=== PATIENT | female | born 1950 | race Caucasian/White ===

== ENCOUNTER 2019-08-07 11:30 | Inpatient (IN) | payer MEDICARE ==
[2019-08-03 14:20] VITALS: BMI 21.3
[2019-08-07] VITALS (25 sets, daily range): BP systolic 110–158; BP diastolic 45–78; PULSE 73–107; RESP 16–36; Ht 160 cm; Wt 54.7 kg
[~2019-08-07] VITALS: Ht 160 cm; Wt 54.7 kg
[~2019-08-07 11:30] MED LIST: CEFAZOLIN 2 GM/50 ML (PMX) 50 ML IVPB SCH; LEVO125T71 PO; SERT-165 PO
[2019-08-07] MEDS: LACTATED RINGER'S 1,000 ML IV SCH (13:19)
[2019-08-07] MEDS ORDERED: CEPASTAT LOZENGE MT PRN (13:30)
[2019-08-07] MEDS ORDERED: NALOXONE (0.4 MG/ML) INJ IV PRN (13:30)
[2019-08-07] MEDS ORDERED: CYCLOBENZAPRINE 10 MG TAB PO PRN (13:30)
[2019-08-07] MEDS ORDERED: AL HYDROX/MG HYDROX/SIMETH 30 ML CUP PO PRN (13:30)
[2019-08-07] MEDS ORDERED: HYDROmorphONE 0.5 MG/0.5 ML SYG IV PRN (13:30)
[2019-08-07] MEDS ORDERED: HYDROCODONE/APAP (10/325) TAB PO PRN ×2 (13:30)
[2019-08-07] MEDS ORDERED: HYDROmorphONE 0.2 MG/ML PCA IV SCH (13:30)
[2019-08-07] MEDS ORDERED: DIPHENHYDRAMINE 50 MG INJ IV PRN ×2 (13:30→18:00)
[2019-08-07] MEDS ORDERED: DIPHENHYDRAMINE 25 MG CAP PO PRN (13:30)
[2019-08-07] MEDS ORDERED: ACETAMINOPHEN 325 MG TAB PO PRN (13:30)
[2019-08-07] MEDS ORDERED: BISACODYL 10 MG SUPP PR PRN (13:30)
[2019-08-07] MEDS ORDERED: GELATIN SIZE 100 SPONGE ONE (13:44)
[2019-08-07] MEDS ORDERED: THROMBIN 5000 UNIT (RECOTHROM) VIAL ONE ×2 (13:44→15:27)
[2019-08-07] MEDS ORDERED: BUPIVACAINE 0.25%/EPI (MDV) 50 ML VIAL INJ ONE (13:44)
[2019-08-07] MEDS ORDERED: POLYMYXIN/BACITRACIN 1L IRRIG ONE (13:44)
[2019-08-07] MEDS ORDERED: BUPIVACAINE 0.25%/EPI (SDV) 10 ML INJ ONE (13:45)
[2019-08-07] MEDS ORDERED: SEVOFLURANE 15 MIN ONE ×2 (13:50→14:00)
[2019-08-07] MEDS ORDERED: MIDAZOLAM 1 MG/ML 2 ML INJ ONE (13:51)
[2019-08-07] MEDS ORDERED: CEFAZOLIN 1 GM INJ ONE ×2 (14:00→17:23)
[2019-08-07] MEDS: CEFAZOLIN 1 GM/50 ML (PMX) 50 ML IVPB SCH ×2 (14:10→21:12)
[2019-08-07] MEDS ORDERED: hydrALAzine 20 MG INJ ONE (15:01)
[2019-08-07] MEDS ORDERED: HEMOSTATIC MATRIX SYG ZFS ONE (15:15)
[2019-08-07] MEDS ORDERED: morphine 10 MG INJ ONE (16:07)
[2019-08-07] MEDS ORDERED: ONDANSETRON 4 MG INJ ONE (17:20)
[2019-08-07] MEDS ORDERED: SUGAMMADEX SODIUM 200 MG/2 ML VIAL IV ONE (17:20)
[2019-08-07] MEDS ORDERED: ROCURONIUM 50 MG INJ ONE (17:23)
[2019-08-07] MEDS ORDERED: GLYCOPYRROLATE 0.4 MG INJ ONE (17:23)
[2019-08-07] MEDS ORDERED: LIDOCAINE 2% (SDV) 5 ML INJ ONE (17:23)
[2019-08-07] MEDS ORDERED: PROPOFOL 20 ML ONE (17:23)
[2019-08-07] MEDS ORDERED: NEOSTIGMINE 3 MG/3 ML SYRINGE ONE (17:23)
[2019-08-07] MEDS ORDERED: FENTAnyl 50 MCG/ML VIAL IV PRN (18:00)
[2019-08-07] MEDS ORDERED: LABETALOL HCL 20MG INJ IV PRN (18:00)
[2019-08-07] MEDS ORDERED: ONDANSETRON 4 MG INJ IV PRN (18:00)
[2019-08-07] MEDS ORDERED: hydrALAzine 20 MG INJ IV PRN (18:00)
[2019-08-07] MEDS ORDERED: HYDROmorphONE 1 MG/5 ML IV SYRINGE IV PRN ×2 (18:00)
[2019-08-07] MEDS ORDERED: MEPERIDINE 25 MG INJ IV PRN (18:00)
[2019-08-07] MEDS ORDERED: METOCLOPRAMIDE 10 MG INJ IV PRN (18:00)
[2019-08-07] MEDS: D5W-0.45 NACL + KCL 20 MEQ 1,000 ML IV SCH (20:32)
[2019-08-07] MEDS: DOCUSATE SODIUM 100 MG CAP PO SCH (21:12)
[2019-08-08 00:11] VITALS: BP 105/56; PULSE 93; RESP 18
[2019-08-08 04:38] VITALS: BP 114/57; PULSE 80; RESP 16
[2019-08-08] MEDS: D5W-0.45 NACL + KCL 20 MEQ 1,000 ML IV SCH ×3 (05:09→20:42)
[2019-08-08] MEDS: LEVOTHYROXINE 125 MCG TAB PO SCH (05:10)
[2019-08-08] MEDS: CEFAZOLIN 1 GM/50 ML (PMX) 50 ML IVPB SCH (05:10)
[2019-08-08] MEDS: LACTATED RINGER'S 1,000 ML IV SCH (07:00)
[2019-08-08 07:37] VITALS: BP 106/51; PULSE 77; RESP 18
[2019-08-08] MEDS ORDERED: SERTRALINE 100 MG TAB PO SCH (09:00)
[2019-08-08] MEDS: DOCUSATE SODIUM 100 MG CAP PO SCH ×2 (09:33→20:42)
[2019-08-08] MEDS: SERTRALINE 100 MG TAB PO SCH (09:33)
[2019-08-08] MEDS: ONDANSETRON 4 MG INJ IV PRN (13:21)
[2019-08-08 15:13] VITALS: BP 113/53; PULSE 69; RESP 18
[2019-08-08] MEDS ORDERED: METOCLOPRAMIDE 10 MG INJ IV PRN (18:30)
[2019-08-08 20:00] VITALS: BP 121/57; PULSE 80; RESP 18
[2019-08-08] MEDS ORDERED: BETHANECHOL 25 MG TAB PO ONE (20:00)
[2019-08-09 02:00] VITALS: BP 150/67; PULSE 75; RESP 18
[2019-08-09] MEDS: LEVOTHYROXINE 125 MCG TAB PO SCH ×2 (06:07→07:00)
[2019-08-09] MEDS: LACTATED RINGER'S 1,000 ML IV SCH (07:00)
[2019-08-09 08:13] VITALS: BP 143/64; PULSE 79; RESP 18
[2019-08-09] MEDS: DOCUSATE SODIUM 100 MG CAP PO SCH ×2 (08:42→21:00)
[2019-08-09] MEDS: D5W-0.45 NACL + KCL 20 MEQ 1,000 ML IV SCH (08:42)
[2019-08-09] MEDS: SERTRALINE 100 MG TAB PO SCH (08:42)
[2019-08-09] MEDS: OXYCODONE/ACETAMINOPHEN (10/325) TAB PO PRN (13:21)
[2019-08-09] MEDS: ONDANSETRON 4 MG INJ IV PRN (13:21)
[2019-08-09 16:15] VITALS: BP 149/64; PULSE 100; RESP 18
[2019-08-09 19:25] VITALS: BP 141/86; PULSE 80; RESP 18
[2019-08-10] MEDS: OXYCODONE/ACETAMINOPHEN (10/325) TAB PO PRN ×3 (00:58→14:19)
[2019-08-10] MEDS: D5W-0.45 NACL + KCL 20 MEQ 1,000 ML IV SCH (00:58)
[2019-08-10] MEDS: ONDANSETRON 4 MG INJ IV PRN ×2 (00:58→08:44)
[2019-08-10 02:20] VITALS: BP 158/71; PULSE 83; RESP 18
[2019-08-10] MEDS: LEVOTHYROXINE 125 MCG TAB PO SCH ×2 (06:46→07:00)
[2019-08-10 07:34] VITALS: BP 152/72; PULSE 72; RESP 18
[2019-08-10] MEDS: SERTRALINE 100 MG TAB PO SCH (08:44)
[2019-08-10] MEDS: DOCUSATE SODIUM 100 MG CAP PO SCH (08:44)
[2019-08-10 11:21] VITALS: BP 150/68; PULSE 75; RESP 16
[2019-08-10 15:01] VITALS: BP 157/70; PULSE 67; RESP 16
[2019-08-10 15:10] VITALS: BP 152/69; PULSE 73; RESP 16
== END 2019-08-10 15:10 | disposition home or self-care (01) | DRG 472 ==
LOC: REC 11:30 → MS1 20:15
PROVIDERS: ADMIT Specialist; ATTEND Specialist
PROC: 0RG20K0 Fusion of 2 or more Cervical Vertebral Joints with Nonautologous Tissue Substitute, Anterior Approach, Anterior Column, Open Approach (ICD-10-PCS; 2019-08-07)
PROC: 0RT30ZZ Resection of Cervical Vertebral Disc, Open Approach (ICD-10-PCS; 2019-08-07)
PROC: 4A11X4G Monitoring of Peripheral Nervous Electrical Activity, Intraoperative, External Approach (ICD-10-PCS; 2019-08-07)
PROC: 0RG20A0 Fusion of 2 or more Cervical Vertebral Joints with Interbody Fusion Device, Anterior Approach, Anterior Column, Open Approach (ICD-10-PCS; principal; 2019-08-07 13:30)
DX: M48.02 Spinal stenosis, cervical region (principal); M50.021 Cervical disc disorder at C4-C5 level with myelopathy; E03.9 Hypothyroidism, unspecified; M19.90 Unspecified osteoarthritis, unspecified site; J45.909 Unspecified asthma, uncomplicated; E78.5 Hyperlipidemia, unspecified; F32.9 Major depressive disorder, single episode, unspecified; R11.2 Nausea with vomiting, unspecified
CPT/HCPCS: 72050; 80048; 83735; 85025; 87086; 88304; 97116; 97162; 97530; A4310; C1713; J0360; J0690; J1170; J2250; J2270; J2405; J2710; J2765; J3010; J3480; J7120